=== PATIENT | female | born 1960 | race Caucasian/White ===

== ENCOUNTER 2020-02-08 22:14 | Emergency (ER) | payer BC ==
[~2020-02-08] VITALS: Ht 170.2 cm; Wt 97.5 kg
[2020-02-08] MEDS ORDERED: ASCORBIC ACID PO (22:57)
[2020-02-08] MEDS ORDERED: SUPER THERAVIT1 EACH PO (22:57)
[2020-02-08] MEDS ORDERED: ECHINACEA PO (22:57)
[2020-02-08 23:26] LABS: RDW 15.7 % (10.5-14.5)
[2020-02-08 23:27] LABS: ABSOLUTE NEUTROPHILS 10.4 thou/uL (1.4-8.2); BASOPHILS 1.4 % (0.0-2.0); EOSINOPHILS 0.9 % (0.0-3.0); HEMATOCRIT 46.1 % (37.0-47.0); HEMOGLOBIN 15.7 gm/dL (12.0-15.0); LYMPHOCYTES 16.3 % (24.0-44.0); MCH 30.4 pg (26.0-34.0); MCHC 33.9 g/dL (28.0-37.0); MCV 89.7 fL (80.0-100.0); MONOCYTES 8.4 % (1.0-8.0); PLATELET COUNT 314 thou/uL (150-400); RBC 5.14 mil/uL (4.20-5.00); WBC 14.2 thou/uL (4.0-11.0)
[2020-02-08 23:32] LABS: ANION GAP 12 mmol/L (7-16); BUN 19 mg/dL (7-18); CHLORIDE 103 mmol/L (98-107); CO2 27 mmol/L (21-32); CREATININE 1.3 mg/dL (0.6-1.0); GLUCOSE 113 mg/dL (74-106); POTASSIUM 3.8 mmol/L (3.5-5.1); SODIUM 142 mmol/L (136-145)
[2020-02-08 23:38] LABS: ALBUMIN 3.4 g/dL (3.4-5.0); DIRECT BILIRUBIN < 0.1 mg/dL (<0.1-0.2); LIPASE 55 U/L (73-393); SGOT 22 U/L (15-37); SGPT 33 U/L (30-65); TOTAL BILIRUBIN 0.4 mg/dL (0.2-1.0); TOTAL PROTEIN 7.5 g/dL (6.4-8.2)
[2020-02-09] MEDS ORDERED: FLAGYL500 M1 PO (02:51)
[2020-02-09] MEDS ORDERED: CIPRO500 M1 PO (02:51)
[2020-02-09 03:13] VITALS: BP 138/84
[2020-02-09 23:06] LABS: HBsAG-EMPLOYEE EXPOSURE Negative (Negative); HCV AB-EMPLOYEE EXPOSURE <0.1 (0.0-0.9)
== END 2020-02-09 03:28 | disposition home or self-care (01) ==
LOC: ER 22:14
PROVIDERS: Emergency Medicine
DX: K57.32 Diverticulitis of large intestine without perforation or abscess without bleeding (principal); R11.2 Nausea with vomiting, unspecified; K62.5 Hemorrhage of anus and rectum; K59.00 Constipation, unspecified; F17.210 Nicotine dependence, cigarettes, uncomplicated; Z79.899 Other long term (current) drug therapy; Z90.711 Acquired absence of uterus with remaining cervical stump